=== PATIENT | male | born 1985 | race Caucasian/White ===

== ENCOUNTER 2017-02-25 14:53 | Emergency (ER) | payer OTHER, MEDICAID ==
[2017-02-25 16:16] VITALS: BP 126/80
--- NOTE | 2017-02-25 17:34 | UC ---
Throat Pain/Nasal Tang HPI - HPI Summary HPI Summary: TWO WEEKS OF COUGH FATIGHT SINUS PRESSURE, CONGESTION AND SORE THROAT - History of Current Complaint Chief Complaint: UCRespiratory Stated Complaint: COUGH,ST Time Seen by Provider: 02/25/17 16:24 Hx Obtained From: Patient Onset/Duration: Gradual Onset, Lasting Weeks, Still Present Severity: Moderate Pain Intensity: 7 Pain Scale Used: 0-10 Numeric Cough: Nonproductive Associated Signs & Symptoms: Positive: Hoarseness, Sinus Discomfort, Nasal Discharge - Epiglottits Risk Factors Epiglottis Risk Factors: Negative - Allergies/Home Medications Allergies/Adverse Reactions: Allergies Allergy/AdvReac Type Severity Reaction Status Date / Time No Known Allergies Allergy Verified 02/25/17 16:18 Home Medications: Home Medications Lurasidone HCl [Latuda] 1 cap PO DAILY 02/25/17 [History Confirmed 02/25/17] PMH/Surg Hx/FS Hx/Imm Hx Previously Healthy: Yes - Surgical History Surgical History: Yes Surgery Procedure, Year, and Place: FRONT TOOTH EXTRACTION - Family History Known Family History: Positive: Unknown - Social History Occupation: Disabled Lives: With Family Alcohol Use: Rare Substance Use Type: None Smoking Status (MU): Light Every Day Tobacco Smoker Type: Cigarettes Have You Smoked in the Last Year: No When Did the Patient Quit Smoking/Using Tobacco: 5-6 months ago Cessation Counseling: Patient Advised to Stop - Immunization History Most Recent Influenza Vaccination: fall 2014 Most Recent Tetanus Shot: unable to recall Most Recent Pneumonia Vaccination: NA Review of Systems Constitutional: Fatigue Skin: Negative Eyes: Negative ENT: Sore Throat, Ear Ache, Nasal Discharge, Sinus Congestion, Sinus Pain/ Tenderness Respiratory: Cough Cardiovascular: Negative Gastrointestinal: Negative Genitourinary: Negative Motor: Negative Neurovascular: Negative Musculoskeletal: Negative Neurological: Negative Psychological: Negative Is Patient Immunocompromised?: No All Other Systems Reviewed And Are Negative: Yes Physical Exam Triage Information Reviewed: Yes Appearance: No Pain Distress, Well-Nourished, Ill-Appearing Vital Signs: Initial Vital Signs Temp 97.9 F 02/25/17 16:13 Pulse 82 02/25/17 16:13 Resp 18 02/25/17 16:13 BP 126/80 02/25/17 16:13 Pulse Ox 99 02/25/17 16:13 Vital Signs Reviewed: Yes Eye Exam: Normal ENT: Positive: Nasal congestion, TM bulging, TM dull Dental Exam: Normal Neck exam: Normal Neck: Positive: Supple, Nontender, No Lymphadenopathy Respiratory Exam: Other - COUGH Respiratory: Positive: Chest non-tender, Lungs clear, Normal breath sounds, No respiratory distress, No accessory muscle use Cardiovascular Exam: Normal Cardiovascular: Positive: RRR, No Murmur, Pulses Normal Abdominal Exam: Normal Musculoskeletal Exam: Normal Neurological Exam: Normal Psychological Exam: Normal Psychological: Positive: Normal Response To Family Skin Exam: Normal Throat Pain/Nasal Course/Dx - Differential Dx/Diagnosis Differential Diagnosis/HQI/PQRI: Pharyngitis, Sinusitis, Tonsillitis, URI Provider Diagnoses: SINUSITIS Discharge - Discharge Plan Condition: Stable Disposition: HOME Prescriptions: Amoxicillin/Clavulanate TAB* [Augmentin TAB 875*] 875 mg PO BID #20 tab Benzonatate CAP* [Tessalon 100 MG CAP*] 100 mg PO TID PRN #15 cap PRN Reason: Cough Patient Education Materials: Sinusitis (ED), Acute Bronchitis (ED) Referrals: Oumar Apodaca MD [Primary Care Provider] -
== END 2017-02-25 16:44 | disposition home or self-care (01) ==
LOC: UCEAST 14:53
DX: J32.9 Chronic sinusitis, unspecified (principal); F17.210 Nicotine dependence, cigarettes, uncomplicated
CPT/HCPCS: 99212; G0463

== ENCOUNTER 2017-03-26 13:20 | Emergency (ER) | payer MEDICAID, OTHER ==
[2017-03-26 14:03] VITALS: BP 112/74
--- NOTE | 2017-03-26 14:18 | UC ---
Respiratory Complaint HPI - HPI Summary HPI Summary: 31 yo male with nasal congestion /post nasal drip and facial pressure x 1 week no f/c no cp or sob - History of Current Complaint Chief Complaint: UCRespiratory Stated Complaint: SINUS COMPLAINT Time Seen by Provider: 03/26/17 14:05 Hx Obtained From: Patient Onset/Duration: Gradual Onset, Lasting Days - 7 Timing: Constant Severity Initially: Mild Severity Currently: Moderate Pain Intensity: 4 Pain Scale Used: 0-10 Numeric Character: Cough: Nonproductive Associated Signs And Symptoms: Positive: Nasal Congestion, Hoarseness, Sinus Discomfort - Allergies/Home Medications Allergies/Adverse Reactions: Allergies Allergy/AdvReac Type Severity Reaction Status Date / Time No Known Allergies Allergy Verified 02/25/17 16:18 PMH/Surg Hx/FS Hx/Imm Hx Previously Healthy: Yes - Surgical History Surgical History: Yes Surgery Procedure, Year, and Place: FRONT TOOTH EXTRACTION - Family History Known Family History: Positive: Hypertension - Social History Alcohol Use: Occasionally Substance Use Type: None Smoking Status (MU): Light Every Day Tobacco Smoker Type: Cigarettes Have You Smoked in the Last Year: No When Did the Patient Quit Smoking/Using Tobacco: 5-6 months ago - Immunization History Most Recent Influenza Vaccination: fall 2014 Most Recent Tetanus Shot: unable to recall Most Recent Pneumonia Vaccination: NA Review of Systems Constitutional: Negative Skin: Negative Eyes: Negative ENT: Ear Ache, Nasal Discharge, Sinus Congestion, Sinus Pain/Tenderness Respiratory: Cough Cardiovascular: Negative Gastrointestinal: Negative Genitourinary: Negative Motor: Negative Neurovascular: Negative Musculoskeletal: Negative Neurological: Negative Psychological: Negative Is Patient Immunocompromised?: No All Other Systems Reviewed And Are Negative: Yes Physical Exam Triage Information Reviewed: Yes Appearance: Well-Appearing, No Pain Distress, Well-Nourished Vital Signs: Initial Vital Signs Temp 98.3 F 03/26/17 14:00 Pulse 89 03/26/17 14:00 Resp 18 03/26/17 14:00 BP 112/74 03/26/17 14:00 Pulse Ox 99 03/26/17 14:00 Vital Signs Reviewed: Yes Eyes: Positive: Conjunctiva Clear ENT: Positive: Hearing grossly normal, Nasal congestion, Nasal drainage, Other: - r>l max sinsus tenderness. Negative: Tonsillar swelling, Tonsillar exudate, Trismus, Muffled/hoarse voice Neck: Positive: Supple, Nontender, No Lymphadenopathy Respiratory: Positive: Lungs clear, Normal breath sounds, No respiratory distress Cardiovascular: Positive: RRR, No Murmur Abdominal Exam: Normal Bowel Sounds: Positive: Present Musculoskeletal: Positive: No Edema Neurological Exam: Normal Neurological: Positive: Alert Psychological Exam: Normal Skin Exam: Normal UC Diagnostic Evaluation - Laboratory O2 Sat by Pulse Oximetry: 99 - normal/not hypoxic Respiratory Course/Dx - Differential Dx/Diagnosis Provider Diagnoses: sinusitis Discharge - Discharge Plan Condition: Stable Disposition: HOME Prescriptions: Amoxicillin PO (*) [Amoxicillin 875 MG (*)] 875 mg PO BID #20 tab Patient Education Materials: Sinusitis (ED) Referrals: George Campos MD [Primary Care Provider] - 4 Days (recheck in 4-7 days if not better) Additional Instructions: warm facial compress saline nasal spray or netti pot
== END 2017-03-26 14:17 | disposition home or self-care (01) ==
LOC: UCEAST 13:20
DX: J32.9 Chronic sinusitis, unspecified (principal); F17.210 Nicotine dependence, cigarettes, uncomplicated
CPT/HCPCS: 99212; G0463

== ENCOUNTER 2018-03-21 10:38 | Emergency (ER) | payer MEDICARE, MEDICAID ==
--- OUTSIDE RECORDS SUMMARY | 2018-03-21 11:17 | XMS REPORT ---
:1985 External Reference #:[id number] Author Organization [facility] Address [address] [place] [address] Phone [phone] Care Team Providers Name Role Phone George Campos III, MD Primary Care Physician Unavailable Payers Type Date Identification Numbers Payment Provider Subscriber Medicare Primary Policy Number: Medicare Stephanie Wallace [id number] PayID: [id number] [address] [place] [address] [facility] Policy Number: [id number] Medicaid Stephanie Wallace Group Name: 1 1 [address] PayID: [id number] [place] [address] Commercial Effective: 2016 Policy Number: Mathew Wallace [id number] Expires: 2018 Group Name: [id number] [address] PayID: [id number] [place] [address] Commercial Effective: Policy Number: [employer] Stephanie E 2012 [id number] Medicaid [place] Expires: 2016 PayID: [id number] [address] [address] [place] [address] Problems Date Description Provider Status Onset: 07/30/2012 Mixed bipolar affective disorder, Oumar Apodaca M.D. Active mild Onset: 07/30/2012 Obesity Oumar Apodaca M.D. 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 Resolved Resolved: 08/01/2016 Social History Type Date Description Comments Occupation Unemployed Cigarette Use Patient is a current cigarette 1ppd; beagn age 16. Max 1ppd smoker, smokes every day ETOH Use Denies alcohol use (+) past abuse; in AA Smoking Patient is a former smoker Quit 07/2015 Allergies, Adverse Reactions, Alerts Date Description Reaction Status Severity Comments 02/08/2011 NKDA active Medications Medication Date Status Form Strength Qnty SIG Indications Ordering Provider Adderall / Active Tablets 20mg 1 in am Unknown 0000 Propecia 11/17/ Hx Tablets 1mg 30tabs 1 po daily L64.9 George Mendoza 2016 - Beth, 03/13/ M.D. 2018 Azithromycin 08/01/ Hx Tablets 250mg 6tabs 2 tabs by J06.9 Bruce 2016 - mouth on Vincentian, 08/06/ day 1; 1 EMERSON 2017 tab by mouth every day on days 2-5 Lamisil 03/16/ Hx Tablets 250mg 30tabs 1 by mouth B35.1 George Mendoza 2015 - daily Beth, 08/01/ M.D. 2016 No Active 10/17/ Hx Unknown Medications 2015 - 2015 Amoxicillin 10/17/ Hx Capsules 500mg 30caps 1 three J06.9 George eMndoza 2016 - times a Beth, 02/01/ day for 10 M.D. 2015 days Nicorette 07/30/ Hx Gum 4mg 120uni upto 4 305.1 Oumar 2012 - ts times Vazquezra 10/17/ daily prn , M.DYanira 2015 Lamictal / Hx Tablets 25mg 60tabs 1 tab bid Oumar 0000 - Paulie 07/30/ , Atul 2012 Wellbutrin XL / Hx Tablets ER 150mg not taking Unknown 0000 - 24HR 2015 Trazodone HCL / Hx Tablets 50mg 1 tablet Unknown 0000 - at bedtime 03/16/ as needed 2015 Abilify 00/ Hx Tablets 5mg not taking Unknown 0000 - 2015 Invega / Hx Suspension 117mg/ml nolonger Unknown Sustenna 0000 - taking q 2016 Strattera 0000/ Hx Capsules 40mg 1 by mouth Unknown 0000 - every day 2015 Concerta 00/ Hx Tablets ER 36mg 1 by mouth Unknown 0000 - every day 2017 Latuda 0000/ Hx Tablets 60mg 1 by mouth Unknown 0000 - every day 2017 Immunizations CPT Code Status Date Vaccine Lot # [id number] Given 02/19/2018 Influenza Virus Vaccine, Quadrivalent, Split, Preservative Free [id number] Given 06/11/2011 Tetanus And Diptheria (Td) For Adult Use Preservative Free Vital Signs Date Vital Result Comment 03/14/2018 Height 68 inches 5'8" Weight 213.00 lb Heart Rate 75 /min BP Systolic Sitting 132 mmHg BP Diastolic Sitting 84 mmHg Body Temperature 98.2 F O2 % BldC Oximetry 97 % BMI (Body Mass Index) 32.4 kg/m2 11/17/2016 Weight 211.38 lb Heart Rate 67 /min BP Systolic 118 mmHg BP Diastolic 80 mmHg Body Temperature 96.7 F O2 % BldC Oximetry 97 % 08/01/2016 Weight 204.00 lb Heart Rate 88 /min BP Systolic Sitting 128 mmHg BP Diastolic Sitting 70 mmHg Body Temperature 97.4 F O2 % BldC Oximetry 97 % 03/16/2016 Weight 184.00 lb Heart Rate 86 /min BP Systolic Sitting 112 mmHg BP Diastolic Sitting 70 mmHg Body Temperature 97.7 F O2 % BldC Oximetry 97 % 02/02/2016 Weight 171.00 lb with shoes Heart Rate 70 /min BP Systolic Sitting 120 mmHg BP Diastolic Sitting 76 mmHg O2 % BldC Oximetry 98 % 10/18/2015 Height 68 inches 5'8" Weight 183.00 lb Heart Rate 74 /min BP Systolic Sitting 138 mmHg BP Diastolic Sitting 78 mmHg Body Temperature 97.6 F BMI (Body Mass Index) 27.8 kg/m2 07/30/2012 Height 68 inches 5'8" Weight 202.00 lb Heart Rate 76 /min BP Systolic Sitting 122 mmHg BP Diastolic Sitting 80 mmHg BMI (Body Mass Index) 30.7 kg/m2 02/08/2011 Height 68 inches 5'8" Weight 159.00 lb Heart Rate 74 /min BP Systolic Sitting 118 mmHg BP Diastolic Sitting 70 mmHg BMI (Body Mass Index) 24.2 kg/m2 Results Test Date Test Result H/L Range Note Laboratory test finding 01/10/2017 PSA Screening 0.637 ng/mL 0-4.000 1 Lipid Profile (Trig/Chol/HDL) 01/10/2017 Triglycerides 362 mg/dL 2 Cholesterol 167 mg/dL 3 HDL Cholesterol 26.9 mg/dL 4 LDL Cholesterol 68 mg/dL 5 Basic Metabolic Panel 01/10/2017 Sodium 137 mmol/L 133-145 Potassium 3.9 mmol/L 3.5-5.0 Chloride 106 mmol/L 101-111 Co2 Carbon Dioxide 24 mmol/L 22-32 Anion Gap 7 mmol/L 2-11 Glucose 89 mg/dL 70-100 Blood Urea Nitrogen 7 mg/dL 6-24 Creatinine 0.88 mg/dL 0.67-1.17 BUN/Creatinine Ratio 8.0 8-20 Calcium 9.5 mg/dL 8.6-10.3 Egfr Non- 99.7 >60 Egfr 128.3 >60 6 Liver Function Panel 04/13/2016 Total Protein 7.2 g/dL 6.4-8.9 Albumin 4.7 g/dL 3.2-5.2 Globulin 2.5 g/dL 2-4 Albumin/Globulin Ratio 1.9 1-3 Total Bilirubin 0.60 mg/dL 0.2-1.0 Direct Bilirubin 0.10 mg/dL 0.03-0.18 Indirect Bilirubin 0.5 mg/dL 0.3-1.0 Alkaline Phosphatase 64 U/L 34-104 Alt 10 U/L 7-52 Ast 15 U/L 13-39 CBC Auto Diff 11/17/2015 White Blood Count 9.4 10^3/uL 3.5-10.8 Red Blood Count 5.70 10^6/uL High 4.0-5.4 Hemoglobin 17.0 g/dL 14.0-18.0 Hematocrit 49 % 42-52 Mean Corpuscular Volume 86 fL 80-94 Mean Corpuscular Hemoglobin 30 pg 27-31 Mean Corpuscular HGB Conc 35 g/dL 31-36 Red Cell Distribution Width 13 % 10.5-15 Platelet Count 289 10^3/uL 150-450 Mean Platelet Volume 7 um3 Low 7.4-10.4 Abs Neutrophils 6.6 10^3/uL 1.5-7.7 Abs Lymphocytes 2.0 10^3/uL 1.0-4.8 Abs Monocytes 0.7 10^3/uL 0-0.8 Abs Eosinophils 0 10^3/uL 0-0.6 Abs Basophils 0 10^3/uL 0-0.2 Abs Nucleated RBC 0.01 10^3/uL Granulocyte % 70.1 % 38-83 Lymphocyte % 21.4 % Low 25-47 Monocyte % 7.8 % 1-9 Eosinophil % 0.5 % 0-6 Basophil % 0.2 % 0-2 Nucleated Red Blood Cells % 0.1 Urine Drug SCR 11/17/2015 Amphetamine Ur Screen Presumptive Posi <SEE None Detect 7 [facility] NOTE> Barbiturates Urine Screen None Detected None Detect Benzodiazepine Urine Screen Presumptive Posi <SEE NOTE> None Detect 8 Urine Cannabinoids Screen Presumptive Posi <SEE NOTE> None Detect 9 Urine Cocaine Screen None Detected None Detect Urine Opiates Screen None Detected None Detect Urine Phencyclidine Screen None Detected None Detect 10 Basic Metabolic Panel 11/17/2015 Sodium 137 mmol/L 133-145 Potassium 3.6 mmol/L 3.5-5.0 Chloride 102 mmol/L 101-111 Co2 Carbon Dioxide 24 mmol/L 22-32 Anion Gap 11 mmol/L 2-11 Glucose 94 mg/dL 70-100 Blood Urea Nitrogen 11 mg/dL 6-24 Creatinine 1.04 mg/dL 0.67-1.17 BUN/Creatinine Ratio 10.6 8-20 Calcium 10.4 mg/dL High 8.6-10.3 Egfr Non- 82.8 >60 Egfr 106.4 >60 11 Laboratory test finding 11/17/2015 Acetaminophen < 15 g/mL 12 Alcohol < 10 mg/dL <10 Salicylate < 2.50 mg/dL <30 Urine Drug SCR ED & 11/12/2015 Amphetamine Ur Screen None Detected None Detect Pain Clinic Barbiturates Urine Screen None Detected None Detect Benzodiazepine Urine Screen Presumptive Posi <SEE NOTE> None Detect 13 Urine Cannabinoids Screen Presumptive Posi <SEE NOTE> None Detect 14 Urine Cocaine Screen None Detected None Detect Urine Opiates Screen None Detected None Detect Urine Phencyclidine Screen None Detected None Detect 15 Laboratory test finding 11/12/2015 Acetaminophen < 15 g/mL 16 Alcohol < 10 mg/dL <10 Salicylate < 2.50 mg/dL <30 TSH (Thyroid Stim Horm) 0.75 ?IU/mL 0.34-5.60 Comp Metabolic Panel 11/12/2015 Sodium 138 mmol/L 133-145 Potassium 3.9 mmol/L 3.5-5.0 Chloride 107 mmol/L 101-111 Co2 Carbon Dioxide 23 mmol/L 22-32 Anion Gap 8 mmol/L 2-11 Glucose 108 mg/dL High 70-100 Blood Urea Nitrogen 9 mg/dL 6-24 Creatinine 0.81 mg/dL 0.67-1.17 BUN/Creatinine Ratio 11.1 8-20 Calcium 9.7 mg/dL 8.6-10.3 Total Protein 7.5 g/dL 6.4-8.9 Albumin 4.9 g/dL 3.2-5.2 Globulin 2.6 g/dL 2-4 Albumin/Globulin Ratio 1.9 1-3 Total Bilirubin 0.60 mg/dL 0.2-1.0 Alkaline Phosphatase 56 U/L 34-104 Alt 11 U/L 7-52 Ast 16 U/L 13-39 Egfr Non- 110.4 >60 Egfr 142.0 >60 17 Urinalysis Profile 11/12/2015 Urine Color Yellow Urine Appearance Clear Urine Specific [place] 1.023 1.010-1.030 Urine pH 7.0 5-9 Urine Urobilinogen Positive Negative Urine Ketones Negative Negative Urine Protein Negative Negative Urine Leukocytes Negative Negative Urine Blood Negative Negative * * Negative 18 Urine Nitrite Negative Negative Urine Bilirubin Negative Negative Urine Glucose Negative Negative CBC Auto Diff 11/12/2015 White Blood Count 6.9 10^3/uL 3.5-10.8 Red Blood Count 5.02 10^6/uL 4.0-5.4 Hemoglobin 15.0 g/dL 14.0-18.0 Hematocrit 44 % 42-52 Mean Corpuscular Volume 88 fL 80-94 Mean Corpuscular Hemoglobin 30 pg 27-31 Mean Corpuscular HGB Conc 34 g/dL 31-36 Red Cell Distribution Width 13 % 10.5-15 Platelet Count 280 10^3/uL 150-450 Mean Platelet Volume 8 um3 7.4-10.4 Abs Neutrophils 4.0 10^3/uL 1.5-7.7 Abs Lymphocytes 2.3 10^3/uL 1.0-4.8 Abs Monocytes 0.5 10^3/uL 0-0.8 Abs Eosinophils 0.1 10^3/uL 0-0.6 Abs Basophils 0 10^3/uL 0-0.2 Abs Nucleated RBC 0.01 10^3/uL Granulocyte % 57.2 % 38-83 Lymphocyte % 33.2 % 25-47 Monocyte % 7.1 % 1-9 Eosinophil % 2.1 % 0-6 Basophil % 0.4 % 0-2 Nucleated Red Blood Cells % 0.1 Throat-Beta Strept 02/27/2013 Throat Beta Strep Culture (SEE NOTE) 19 1 PT IS FASTING 2 Desirable <150 Borderline high 150-199 High 200-499 Very High >500 3 Desirable <200 Borderline high 200-239 High >239 4 Low <40 Desirable: 40-60 High: >60 5 Desirable: <100 mg/dL Near Optimal: 100-129 mg/dL Borderline High: 130-159 mg/dL High: 160-189 mg/dL Very High: >189 mg/dL 6 Because ethnic data is not always readily available, this report includes an eGFR for both -Americans and non- Americans. The National Kidney Disease Education Program (NKDEP) does not endorse the use of the MDRD equation for patients that are not between the ages of 18 and 70, are , have extremes of body size, muscle mass, or nutritional status, or are non- or non-. According to the National Kidney Foundation, irrespective of diagnosis, the stage of the disease is based on the level of kidney function: Stage Description GFR(mL/min/1.73 m(2)) 1 Kidney damage with normal or decreased GFR 90 2 Kidney damage with mild decrease in GFR 60-89 3 Moderate decrease in GFR 30-59 4 Severe decrease in GFR 15-29 5 Kidney failure <15 (or dialysis) 7 Presumptive Positive Presumptive positive results are unconfirmed. 8 Presumptive Positive Presumptive positive results are unconfirmed. 9 Presumptive Positive Presumptive positive results are unconfirmed. 10 The urine specimen was tested at the listed cutoffs: Drug class test level (ng/mL) Amphetamines 500 Barbiturates 200 Benzodiazepine metabolites 200 Cocaine metabolites 150 Cannabinoids 50 Opiates 300 Pcp 25 Specimen was received without chain of custody. Results should be used for medical purposes only. 11 Because ethnic data is not always readily available, this report includes an eGFR for both -Americans and non- Americans. The National Kidney Disease Education Program (NKDEP) does not endorse the use of the MDRD equation for patients that are not between the ages of 18 and 70, are , have extremes of body size, muscle mass, or nutritional status, or are non- or non-. According to the National Kidney Foundation, irrespective of diagnosis, the stage of the disease is based on the level of kidney function: Stage Description GFR(mL/min/1.73 m(2)) 1 Kidney damage with normal or decreased GFR 90 2 Kidney damage with mild decrease in GFR 60-89 3 Moderate decrease in GFR 30-59 4 Severe decrease in GFR 15-29 5 Kidney failure <15 (or dialysis) 12 Therapeutic concentration: <50 ug/mL Toxic concentration: >120 ug/mL 13 Presumptive Positive Presumptive positive results are unconfirmed. 14 Presumptive Positive Presumptive positive results are unconfirmed. 15 The urine specimen was tested at the listed cutoffs: Drug class test level (ng/mL) Amphetamines 500 Barbiturates 200 Benzodiazepine metabolites 200 Cocaine metabolites 150 Cannabinoids 50 Opiates 300 Pcp 25 Specimen was received without chain of custody. Results should be used for medical purposes only. 16 Therapeutic concentration: <50 ug/mL Toxic concentration: >120 ug/mL 17 Because ethnic data is not always readily available, this report includes an eGFR for both -Americans and non- Americans. The National Kidney Disease Education Program (NKDEP) does not endorse the use of the MDRD equation for patients that are not between the ages of 18 and 70, are , have extremes of body size, muscle mass, or nutritional status, or are non- or non-. According to the National Kidney Foundation, irrespective of diagnosis, the stage of the disease is based on the level of kidney function: Stage Description GFR(mL/min/1.73 m(2)) 1 Kidney damage with normal or decreased GFR 90 2 Kidney damage with mild decrease in GFR 60-89 3 Moderate decrease in GFR 30-59 4 Severe decrease in GFR 15-29 5 Kidney failure <15 (or dialysis) 18 *Ascorbic acid is present which may interfere with detection of blood. 19 RUN DATE: 03/03/13 [facility] LAB LIVE PAGE 1 RUN TIME: [address] [place] [id number] Specimen Inquiry Name: STEPHANIE FIELDS : [address]: Lonnie Garcia MD Acct: [id number] Unit: [id number] AGE: 27 Location: [facility] Re02/27/13 SEX: M Status: DEP ER SPEC: [id number] DARIEL: 02/27/13-[address] [facility] [address]: Lonnie Garcia MD REQ: [id number] RECD: 02/28/13-1025 STATUS: DEVORA HELMS DR: Oumar Farley MD _ SOURCE: THROAT SPDESC: ORDERED: Throat Beta Str Procedure Result Verified Site Throat Beta Strep Culture Final 03/03/13- 0811 ML Organism 1 Negative Group A Strep END OF REPORT * ML=Testing performed at Main Lab DEPARTMENT OF PATHOLOGY, [address] [place] [address] Vinh Workman M.D. Director [facility] Permit #[id number] Procedures Date CPT Code Description Status 12/08/2015 46716 EKG, Interpretation Only Completed Encounters Type Date Location Provider CPT E/M Dx Office Visit 11/17/2016 9:20a [facility] George Campos, [address]60 L64.9 - Deon Pollard Z13.220 Z13.1 Office Visit 08/01/2016 1:40p [facility] [place] [address] J06.9 - [address] Office Visit 03/16/2016 10:20a [facility] George Campos, 83196 B35.1 - Deon Pollard Office Visit 02/02/2016 1:00p [facility] George Campos, 39727 M54.2 - Deon Pollard F20.9 Office Visit 12/03/2015 9:45a [facility] [address] L30.9 Hospitalists B35.1 Office Visit 11/30/2015 12:32p [facility] Jolie Montes, 99385 L30.9 Assoc,pc [employer] [facility] Office Visit 10/18/2015 3:00p [facility] George Campos M.D. 28528 J06.9 Trixie Robles B35.1 Office Visit 07/30/2012 8:00a [facility] Oumar Apodaca, 28174 296.61 Trixie Robles M.D. 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
[2018-03-21 11:18] VITALS: BP 137/84
[2018-03-21] MEDS ORDERED: Albuterol 2.5 MG/3 ML NEB.SOL* (0.083%) INH ONE (11:31)
--- NOTE | 2018-03-21 11:37 | ED ---
Respiratory - HPI Summary HPI Summary: patient with cough, producitive of brownish sputum, cough associated with some shortness of breath, brownish discharge from nose, normal sense of taste and smell. smoking 3/4 ppd - History of Current Complaint Chief Complaint: UCRespiratory Stated Complaint: COUGH,CONGESTED Time Seen by Provider: 03/21/18 11:24 Hx Obtained From: Patient Onset/Duration: Gradual Onset, Lasting Days Initial Severity: Moderate Current Severity: Moderate Pain Intensity: 7 Character: Wheezing Sputum Amount: Moderate Sputum Color: Brown Aggravating Factor(s): Nothing Alleviating Factor(s): Nothing Associated Signs and Symptoms: SOB, Sinus Infection, Wheezing - Risk Factors Status Asthmaticus Risk Factors: Negative Pulmonary Embolism Risk Factors: Negative Cardiac Risk Factors: Negative Pseudomonas Risk Factors: Negative Tuberculosis Risk Factors: Negative - Allergy/Home Medications Allergies/Adverse Reactions: Allergies Allergy/AdvReac Type Severity Reaction Status Date / Time No Known Allergies Allergy Verified 03/21/18 11:18 Home Medications: Home Medications Dextroamp-Amphetamin 20 mg Tab 20 mg PO DAILY 03/21/18 [History Confirmed ] PMH/Surg Hx/FS Hx/Imm Hx Previously Healthy: Yes Endocrine/Hematology History: Denies: Hx Diabetes, Hx Thyroid Disease Cardiovascular History: Denies: Hx Hypertension Respiratory History: Denies: Hx Asthma, Hx Chronic Obstructive Pulmonary Disease (COPD) GI History: Denies: Hx Ulcer Psychiatric History: Reports: Hx Depression, Hx Schizophrenia, Other Psychiatric Issues/Disorders - ADHD - Surgical History Surgery Procedure, Year, and Place: FRONT TOOTH EXTRACTION Infectious Disease History: No Infectious Disease History: Denies: Hx Hepatitis, Hx Human Immunodeficiency Virus (HIV), Traveled Outside the [place] in Last 30 Days - Family History Known Family History: Positive: Unknown, Hypertension - Social History Alcohol Use: Rare Hx Substance Use: No Substance Use Type: Reports: None Smoking Status (MU): Light Every Day Tobacco Smoker Type: Cigarettes Have You Smoked in the Last Year: No Review of Systems Positive: Fatigue Eyes: Negative Positive: Nasal Discharge Cardiovascular: Negative Positive: Shortness Of Breath, Cough Gastrointestinal: Negative Genitourinary: Negative Musculoskeletal: Negative Skin: Negative Neurological: Negative Psychological: Normal Physical Exam Triage Information Reviewed: Yes Vital Signs On Initial Exam: Initial Vitals Temp Pulse Resp BP Pulse Ox 36.6 C 75 16 137/84 100 03/21/18 11:15 03/21/18 11:15 03/21/18 11:15 03/21/18 11:15 03/21/18 11:15 Vital Signs Reviewed: Yes Appearance: Positive: Well-Appearing Skin: Positive: Warm, Dry Head/Face: Positive: Normal Head/Face Inspection Eyes: Positive: Normal ENT: Positive: Normal ENT inspection Neck: Positive: Supple Respiratory/Lung Sounds: Positive: Wheezes Cardiovascular: Positive: Normal Abdomen Description: Positive: Nontender Bowel Sounds: Positive: Present Musculoskeletal: Positive: Normal Diagnostics - Vital Signs Vital Signs Temp Pulse Resp BP Pulse Ox 03/21/18 11:15 36.6 C 75 16 137/84 100 - Laboratory Lab Statement: Any lab studies that have been ordered have been reviewed, and results considered in the medical decision making process. Disposition - Diagnoses Provider Diagnoses: Acute bronchitis, Sinusitis Discharge - Discharge Plan Condition: Fair Disposition: HOME Prescriptions: Albuterol HFA INHALER* [Ventolin HFA Inhaler*] 2 puff INH Q6H PRN #1 mdi PRN Reason: Cough Amoxicillin PO (*) [Amoxicillin 875 MG (*)] 875 mg PO BID #14 tab Patient Education Materials: Acute Bronchitis (ED), Sinusitis (ED) Referrals: George Campos MD [Primary Care Provider] - - Billing Disposition and Condition Condition: FAIR Disposition: Home
--- NOTE | 2018-03-21 11:57 | RAD ---
INDICATION: Cough, fever, chills, wheezing. Comparison: No relevant prior exams available on the [facility] PACS for comparison. Technique: Dual energy PA and lateral chest views. Report: Mildly elevated lung volumes. No focal pulmonary lesion, compelling alveolar consolidation, pleural effusion, pneumothorax. The heart, pulmonary vasculature, and mediastinal contours are unremarkable. Bilateral epicardial fat pads noted. IMPRESSION: #. Elevated lung volumes suggest potential obstructive lung disease. #. No evidence for pneumonia.
--- NOTE | 2018-03-21 21:39 | UC ---
- Progress Note Progress Note: Patient Name: STEPHANIE FIELDS Medical Record#: [id number] Ordering Physician: Rick Bellamy MD Acct.#: [id number] : 1985 Age: 32 Sex: M Location: [facility] Exam Date: 03/21/18 1130 ADM Status: REG ER Order Information: CHEST PA & LAT 2 VWS Accession Number: [id number] CPT: 71187 INDICATION: Cough, fever, chills, wheezing. Comparison: No relevant prior exams available on the [facility] PACS for comparison. Technique: Dual energy PA and lateral chest views. Report: Mildly elevated lung volumes. No focal pulmonary lesion, compelling alveolar consolidation, pleural effusion, pneumothorax. The heart, pulmonary vasculature , and mediastinal contours are unremarkable. Bilateral epicardial fat pads noted. IMPRESSION: #. Elevated lung volumes suggest potential obstructive lung disease. #. No evidence for pneumonia. <Electronically signed by George Ivey MD in OV> 03/21/18 115 Dictated By: George Ivey MD Dictated Date/Time: 03/21/18 1154 Transcribed Date/Time: 03/21/18 1152 Copy to: CC:Rick Bellamy MD; George Campos III, MD Imaging - [facility] Imaging - [facility] [address] [place] [address] ph [phone] ph ([phone]) ph ([phone]) This report is only to be considered final once signed by the Provider(s) as displayed in the "<Electronically Signed by >" field (s). Absence of a signature indicates the report is in a draft status and still needs to be finalized. In the event this document was created by someone other than the signing Provider, the individual initiating the document will be listed in the "Entered by:" or "Dictated by:" rivera. 1 of 1 Course/Dx - Diagnoses Provider Diagnoses: Acute bronchitis, Sinusitis Discharge - Sign-Out/Discharge Documenting (check all that apply): Post-Discharge Follow Up All imaging exams completed and their final reports reviewed: Yes - Discharge Plan Condition: Fair Disposition: HOME Prescriptions: Albuterol HFA INHALER* [Ventolin HFA Inhaler*] 2 puff INH Q6H PRN #1 mdi PRN Reason: Cough Amoxicillin PO (*) [Amoxicillin 875 MG (*)] 875 mg PO BID #14 tab Patient Education Materials: Sinusitis (ED), Acute Bronchitis (ED) Referrals: George Campos MD [Primary Care Provider] - - Billing Disposition and Condition Condition: FAIR Disposition: Home
--- NOTE | 2018-03-24 07:31 | UC ---
- Progress Note Progress Note: sputum culture shows normal daniela, no further actions. Course/Dx - Diagnoses Provider Diagnoses: Acute bronchitis, Sinusitis Discharge - Sign-Out/Discharge Documenting (check all that apply): Patient Departure All imaging exams completed and their final reports reviewed: Yes - Discharge Plan Condition: Fair Disposition: HOME Prescriptions: Albuterol HFA INHALER* [Ventolin HFA Inhaler*] 2 puff INH Q6H PRN #1 mdi PRN Reason: Cough Amoxicillin PO (*) [Amoxicillin 875 MG (*)] 875 mg PO BID #14 tab Patient Education Materials: Sinusitis (ED), Acute Bronchitis (ED) Referrals: George Campos MD [Primary Care Provider] - - Billing Disposition and Condition Condition: FAIR Disposition: Home
== END 2018-03-21 12:30 | disposition home or self-care (01) ==
LOC: UCEAST 10:38
DX: J20.9 Acute bronchitis, unspecified (principal); J32.9 Chronic sinusitis, unspecified; F90.9 Attention-deficit hyperactivity disorder, unspecified type; F17.210 Nicotine dependence, cigarettes, uncomplicated
CPT/HCPCS: 71046; 87070; 87205; 99212; G0463

== ENCOUNTER 2019-04-30 11:05 | Emergency (ER) | payer MEDICARE, MEDICAID ==
--- OUTSIDE RECORDS SUMMARY | 2019-04-30 11:11 | XMS REPORT | Continuity of Care Document ---
:1985 External Reference #:[id number] Author Name Gisela Valencia M.D., FACP Address [address] [place] [address] [place] [address] Care Team Providers Name Role Phone George Campos III, MD - Internal Care Team Information Nurse Orthopedic [phone] Medicine Problems Active Problems Provider Date Mixed bipolar affective disorder, mild Oumar Apodaca M.D. Onset: 2012 Obesity Oumar Apodaca M.D. Onset: 07/30/2012 Attention deficit hyperactivity disorder, Oumar Apodaca M.D. Onset: 07/30 predominantly inattentive type Ex-smoker Bruce Barnes NP Onset: 08/01/2016 Acute upper respiratory infection Bruce Barnes NP Onset: 08/01/2016 Social History Type Date Description Comments Sex Unknown Tobacco Use Start: Unknown Patient is a current 1ppd; beagn age 16. Max cigarette smoker, smokes 1ppd every day ETOH Use Denies alcohol use (+) past abuse; in AA Tobacco Use Start: Unknown Patient is a current smoker, smokes every day Smoking Status Reviewed: 04/28/19 Patient is a current smoker, smokes every day Allergies, Adverse Reactions, Alerts Description No Known Drug Allergies Medications Active Medications SIG Qnty Indications Ordering Provider Date Cephalexin 1 by mouth twice 14caps L03.115 Gisela Valencia, 2019 500mg daily Atul, FACP Capsules Gemfibrozil take one tablet 60tabs E78.1 Elayne Hanks MD 10/31/2018 600mg by mouth twice a Tablets day Lisinopril 1 by mouth every 90tabs I10 Elayne Hanks MD 10/31/2018 5mg Tablets day Clobetasol Propionate apply to affected 45gm L30.9 Elayne Hanks MD 2018 area twice a day 0.05% Cream Adderall 1 in am Unknown 20mg Tablets History Medications Cephalexin 1 by mouth twice 14caps Carmen Islas N.P. 2019 - 500mg daily 2019 Capsules Immunizations CPT Code Status Date Vaccine Lot # [id number] Given 03/05/2019 Fluzone High Dose 73845 Given 02/19/2018 Influenza Virus Vaccine, Quadrivalent, Split, Preservative Free [id number] Given 06/11/2011 Tetanus And Diptheria (Td) For Adult Use Preservative Free Vital Signs Date Vital Result Comment 2019 2:15pm Height 68 inches 5'8" Weight 200.00 lb Heart Rate 91 /min BP Systolic Sitting 130 mmHg Rue reg cuff BP Diastolic Sitting 94 mmHg Rue reg cuff O2 % BldC Oximetry 96 % BMI (Body Mass Index) 30.4 kg/m2 02/11/2019 9:33am Height 68 inches 5'8" Weight 198.00 lb Heart Rate 72 /min BP Systolic Sitting 122 mmHg BP Diastolic Sitting 79 mmHg Body Temperature 97.4 F O2 % BldC Oximetry 97 % BMI (Body Mass Index) 30.1 kg/m2 Results Test Acquired Date Facility Test Result H/L Range Note Lipid Profile 02/07/2019 [facility] Triglycerides 374 mg/dL 1 (Trig/Chol/HDL) [address] [place] [address] [phone] Cholesterol 166 mg/dL 2 HDL Cholesterol 29.3 mg/dL 3 LDL Cholesterol 62 mg/dL 4 Comp Metabolic 02/07/2019 [facility] Sodium 138 mmol/L Normal 135-145 Panel [address] [place] [address] [phone] Potassium 4.0 mmol/L Normal 3.5-5.0 Chloride 107 mmol/L Normal 101-111 Co2 Carbon Dioxide 23 mmol/L Normal 22-32 Anion Gap 8 mmol/L Normal 2-11 Glucose 97 mg/dL Normal 70-100 Blood Urea Nitrogen 10 mg/dL Normal 6-24 Creatinine 0.78 mg/dL Normal 0.67-1.17 BUN/Creatinine Ratio 12.8 Normal 8-20 Calcium 9.7 mg/dL Normal 8.6-10.3 Total Protein 7.0 g/dL Normal 6.4-8.9 Albumin 4.7 g/dL Normal 3.2-5.2 Globulin 2.3 g/dL Normal 2-4 Albumin/Globulin Ratio 2.0 Normal 1-3 Total Bilirubin 0.60 mg/dL Normal 0.2-1.0 Alkaline Phosphatase 62 U/L Normal 34-104 Alt 33 U/L Normal 7-52 Ast 24 U/L Normal 13-39 Egfr Non- 113.3 >60 Egfr 137.1 >60 5 1 Desirable: <150 Borderline High: 150-199 High: 200-499 Very High: >500 2 Desirable: <200 Borderline High: 200-239 High: >239 3 Low: <40 Desirable: 40-60 High: >60 4 Desirable: <100 Near Optimal: 100-129 Borderline High: 130-159 High: 160-189 Very High: >189 5 Because ethnic data is not always readily [...] 15-29 5 Kidney failure <15 (or dialysis) Procedures Description No Information Available Medical Devices Description No Information Available Encounters Type Date Location Provider Dx Diagnosis Office Visit 02/11/2019 [facility] Internal Elayne Hanks MD E78.1 Pure hyperglyceridemia 9:40a Medicine - [facility] I10 Essential (primary) hypertension F17.210 Nicotine dependence, cigarettes, uncomplicated Assessments Date Code Description Provider 2019 S80.861A Insect bite (nonvenomous), right lower Gisela Valencia M.D. , FACP leg, initial encounter 2019 L03.115 Cellulitis of right lower limb Gisela Valencia M.D., FACP 02/11/2019 E78.1 Pure hyperglyceridemia Elayne Hanks MD 02/11/2019 I10 Essential (primary) hypertension Elayne Hanks MD 02/11/2019 F17.210 Nicotine dependence, cigarettes, Elayne Hanks MD uncomplicated 10/31/2018 Z00.00 Encounter for general adult medical Elayne Hanks MD examination without abno 10/31/2018 F20.9 Schizophrenia, unspecified Elayne Hanks MD 10/31/2018 E78.1 Pure hyperglyceridemia Elayne Hanks MD 10/31/2018 I10 Essential (primary) hypertension Elayne Hanks MD 10/31/2018 F17.210 Nicotine dependence, cigarettes, Elayne Hanks MD uncomplicated 10/31/2018 L30.9 Dermatitis, unspecified Elayne Hanks MD Plan of Treatment Future Appointment(s):08/12/2019 9:40 am - [facility] Gisela Valencia M.D., FACPS80.861A Insect bite ( nonvenomous), right lower leg, initial encounterComments:INSECT BITES:I understand that you have been struggling to eradicate bedbugs from your home. I think that the bites on your right leg appear infectted and should be treated with an antibiotic. I havesent an rx for cephalexin to your pharmacy.You may use diphenhydramine for the itching (this is available OTC).I do not think that you should continue to take so much ibuprofen.I am giving you some information about bed bugs from the website UpOpsonaDate.L03.115 Cellulitis of right lower limbNew Medication:Cephalexin 500 mg - 1 by mouth twice daily Functional Status Description No Information Available Mental Status Description No Information Available Referrals Refer to Reason for Referral Status Appt Date [facility] Received Partial [address] [facility] [address] [place] [address] [phone] Lucio Garcia MD Sent 11/28/2018 [facility], [address] [place] [id number] [phone]
--- OUTSIDE RECORDS SUMMARY | 2019-04-30 11:11 | XMS REPORT | Continuity of Care Document ---
:1985 External Reference #:[id number] Author Name Gisela Valencia M.D., FACP (transmitted by agent of provider Sahra Sandhu) Address [address] [place] [address] [place] [address] Care Team Providers Name Role Phone George Campos III, MD - Internal Care Team Information Addiction Psychiatrist [phone] Medicine Problems Active Problems Provider Date Mixed [...] Date Cephalexin 1 by mouth twice 14caps Gisela Valencia, 2019 500mg daily Atul, FACP Capsules Gemfibrozil take one tablet 60tabs E78.1 Elayne Hanks MD 10/31/2018 600mg by mouth twice a Tablets day Lisinopril 1 by mouth every 90tabs I10 Elayne Hanks MD 10/31/2018 5mg Tablets day Clobetasol Propionate apply to affected 45gm L30.9 Elayne Hanks MD 2018 area twice a day 0.05% Cream Adderall 1 in am Unknown 20mg Tablets Immunizations CPT Code Status Date Vaccine Lot # [id number] Given 03/05/2019 Fluzone High Dose 58372 Given 02/19/2018 Influenza Virus Vaccine, Quadrivalent, Split, Preservative Free 01121 Given 06/11/2011 Tetanus And Diptheria (Td) For [...] Result H/L Range Note Lipid Profile 02/07/2019 [facility] Triglycerides 374 mg/dL 1 (Trig/Chol/HDL) [address] [place] [address] [phone] Cholesterol 166 mg/dL 2 HDL Cholesterol 29.3 mg/dL 3 LDL Cholesterol 62 mg/dL 4 Comp Metabolic 02/07/2019 [facility] Sodium 138 mmol/L Normal 135-145 Panel [address] [place] [address] [phone] Potassium 4.0 mmol/L Normal 3.5-5.0 Chloride 107 [...] Location Provider Dx Diagnosis Office Visit 02/11/2019 [employer] [facility] Elayne Hanks MD E78.1 Pure hyperglyceridemia 9:40a Medicine - [facility] I10 Essential (primary) hypertension F17.210 Nicotine dependence, cigarettes, uncomplicated Assessments Date Code Description Provider 2019 S80.862A Insect bite (nonvenomous), left lower Gisela Valencia M.D. , FACP leg, initial encounter 02/11/2019 E78.1 Pure hyperglyceridemia Elayne Hanks MD [...] 9:40 am - Elay[facility] Valencia M.D., FACPS80.862A Insect bite ( nonvenomous), left lower leg, initial encounterComments:INSECT BITES:I understand that you have been struggling to eradicate bedbugs from your home. I think that the bites on your left leg appear infectted and should be treated with an antibiotic. I have sent an rx for cephalexin to your pharmacy.You may use diphenhydramine for the itching (this is available OTC).I do not think that you should continue to take so much ibuprofen.I am giving you some information about bed bugs from the website UpToDate. Functional Status Description No Information Available Mental Status Description No Information Available Referrals Refer to Dr Reason for Referral Status Appt Date [facility] Received Partial [address] [facility] [address] [place], [place] [id number] [phone] Lucio Garcia MD Sent 11/28/2018 [address] [facility], [place] [address] [phone]
[2019-04-30 11:46] VITALS: BP 146/88
--- NOTE | 2019-04-30 12:14 | UC ---
Skin Complaint HPI - HPI Summary HPI Summary: 34-year-old male who was seen here on the for infected bedbug bites. He was started on cephalexin and has had 4 doses however he states he hasn't had no improvement. He has had some drainage out of one of them. No history of MRSA. - History of Current Complaint Chief Complaint: UCSkin Time Seen by Provider: 04/30/19 12:12 Stated Complaint: BUG BITES Hx Obtained From: Patient Onset/Duration: Gradual Onset Skin Exposure Onset/Duration: Days Ago Timing: Constant Onset Severity: Mild Current Severity: Moderate Pain Intensity: 6 Location: Other - Back of right leg in 3 different areas Character: Swelling, Pain, Redness, Raised Aggravating Factor(s): Touch Alleviating Factor(s): Nothing Associated Signs & Symptoms: Positive: Drainage, Tenderness Related History: Insect Bite/Sting - Patient states he has bedbugs in his house and is having a difficult time getting rid of them. - Allergy/Home Medications Allergies/Adverse Reactions: Allergies Allergy/AdvReac Type Severity Reaction Status Date / Time No Known Allergies Allergy Verified 04/30/19 11:38 Home Medications: Home Medications Dextroamphetamine/Amphetamine [Adderall 10 mg-] 1 tab PO BEDTIME 04/30/19 [ History Confirmed 04/30/19] Dextroamphetamine/Amphetamine [Adderall Xr 20 mg Capsule] 20 mg PO DAILY [History Confirmed 04/30/19] Ibuprofen TAB* [Motrin TAB* 600 MG] 600 mg PO Q6H PRN 04/30/19 [History Confirmed 04/30/19] PMH/Surg Hx/FS Hx/Imm Hx Previously Healthy: Yes Psychological History: Schizophrenia - Surgical History Surgical History: Yes Surgery Procedure, Year, and Place: FRONT TOOTH EXTRACTION - Family History Known Family History: Positive: Unknown, Hypertension - Social History Occupation: Employed Part-time Alcohol Use: Occasionally Substance Use Type: None Smoking Status (MU): Light Every Day Tobacco Smoker Type: Cigarettes Amount Used/How Often: under 1 PPD Have You Smoked in the Last Year: No When Did the Patient Quit Smoking/Using Tobacco: 5-6 months ago - Immunization History Most Recent Influenza Vaccination: fall 2014 Most Recent Tetanus Shot: unable to recall Most Recent Pneumonia Vaccination: NA Review of Systems All Other Systems Reviewed And Are Negative: Yes Skin: Positive: Other - 3 areas of infected bug bites behind his right lower leg , he has other bedbug bites on his arms and upper legs which are not infected. 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 Vital Signs: Initial Vital Signs Temp 98.2 F 04/30/19 11:40 Pulse 80 04/30/19 11:40 Resp 16 04/30/19 11:40 BP 146/88 04/30/19 11:40 Pulse Ox 98 04/30/19 11:40 Vital Signs Reviewed: Yes Musculoskeletal Exam: Normal Neurological Exam: Normal Psychological Exam: Normal Skin: Positive: Other - Patient has 2 abscesses on the right calf area, one that drains a small amount of pus and the other one is very hard on palpation. He has a third one proximal to that which is just erythema and a small amount of hardness on palpation. He has several other bedbug bites which are not infected on his arms and upper right leg. Procedures - Incision and Drainage Right Lower Posterior Midline Distal Leg Anesthesia: Local Instrument(s): Scalpel Packing: Other - no packing. Course/Dx - Course Course Of Treatment: The abscess on the patient's proximal calf had an area of visible pus under the skin and therefore after timeout was done area was nicked using the knife blade and pus was expressed. Then after injection of lidocaine 1% plain in that area and the distal abscess and approximately 0.5 cm incision was done and copious amounts of exudate were expressed. Patient tolerated procedure well. Sterile dressing was then applied to both areas. I'm changing his antibiotic to Bactrim to cover MRSA and he is to stop the cephalexin. He is to do warm moist compresses or warm water soaks 4-6 times a day for 20 minutes each time. He is to make an appointment with his primary care provider for follow-up for recheck. If he develops fever, chills and vomiting unable keep the medicine down his to go to the emergency room. - Diagnoses Provider Diagnosis: Abscess of leg, Insect bite, infected Discharge ED - Sign-Out/Discharge Documenting (check all that apply): Patient Departure All imaging exams completed and their final reports reviewed: No Studies - Discharge Plan Condition: Fair Disposition: HOME Prescriptions: oxyCODONE/Acetamin 5/325 MG* [Percocet 5/325 TAB*] 1 tab PO Q6H PRN #5 tab MDD 6 PRN Reason: Pain - Moderate Sulfamethox/Trimethoprim DS* [Bactrim DS 800/160 TAB*] 1 tab PO BID 10 Days #20 tab Patient Education Materials: Abscess (ED) Referrals: Elayne Hanks MD [Primary Care Provider] - Additional Instructions: Warm moist compresses 4-6 times a day for 20 minutes each time or do warm water soaks in your bathtub. Take the Bactrim with food. Definite follow-up with your primary care provider on Sunday for a recheck. If you develop fever, chills and vomiting and unable keep the medication down then you're to go to the emergency room for further treatment. Change Dressing daily. May continue Tylenol every 4 hours for pain or Motrin every 8 hours. If you take the Tylenol do not take the Percocet within 4 hours because it contains Tylenol. - Billing Disposition and Condition Condition: FAIR Disposition: Home - Attestation Statements Provider Attestation: Per institutional requirements, I have reviewed the chart, however, I was not consulted specifically or made aware of this patient by the midlevel provider. I did not personally evaluate, interact with , or disposition this patient.
[2019-04-30] MEDS ORDERED: Lidocaine 1% MPF ** 5 ML VIAL INJ ONE (12:41)
== END 2019-04-30 13:25 | disposition home or self-care (01) ==
LOC: UCEAST 11:05
DX: S80.861D Insect bite (nonvenomous), right lower leg, subsequent encounter (principal); L03.115 Cellulitis of right lower limb; F20.9 Schizophrenia, unspecified; F17.210 Nicotine dependence, cigarettes, uncomplicated; W57.XXXD Bitten or stung by nonvenomous insect and other nonvenomous arthropods, subsequent encounter
CPT/HCPCS: 10060; 99212; G0463

== ENCOUNTER 2019-09-29 11:16 | Emergency (ER) | payer MEDICARE, MEDICAID ==
--- OUTSIDE RECORDS SUMMARY | 2019-09-29 11:23 | XMS REPORT | Continuity of Care Document ---
:1985 External Reference #:[id number] Author Name Elayne Hanks MD (transmitted by agent of provider Sahra Sandhu) Address [address], [place] [address] Care Team Providers Name Role Phone George Campos III, MD - Internal Care Team Information [place] Medicine Problems Active Problems Provider Date Mixed [...] smoker, smokes every day Smoking Status Reviewed: 08/12/19 Patient is a current smoker, smokes every day Allergies, Adverse Reactions, Alerts Description No Known Drug Allergies Medications Active Medications SIG Qnty Indications Ordering Provider Date Omeprazole 1 by mouth every 90caps K21.9 Elayne Hanks MD 08/12/[address] Lester take one tablet 60tabs E78.1 Elayne Hanks MD 10/31/2018 600mg by mouth twice a Tablets day Lisinopril 1 by mouth every 90tabs I10 Elayne Hanks MD 10/31/2018 5mg Tablets day Adderall 1 in am Unknown 20mg Tablets History Medications Cephalexin 1 by mouth 14caps Carmen Islas, 2019 - 500mg twice daily N.P. 2019 Capsules Cephalexin 1 by mouth 14caps L03.115 Gisela Valencia, 2019 - 500mg twice daily M.DYanira, FACP 08/12/2019 Capsules Immunizations CPT Code Status Date Vaccine Lot # [id number] Given 03/05/2019 Fluzone High Dose 36184 Given 02/19/2018 Influenza Virus Vaccine, Quadrivalent, Split, Preservative Free 74168 Given 06/11/2011 Tetanus And Diptheria (Td) For Adult Use Preservative Free Vital Signs Date Vital Result Comment 08/12/2019 9:35am Height 68 inches 5'8" Weight 205.00 lb Heart Rate 66 /min BP Systolic Sitting 131 mmHg BP Diastolic Sitting 85 mmHg Body Temperature 97.6 F O2 % BldC Oximetry 96 % BMI (Body Mass Index) 31.2 kg/m2 2019 2:15pm Height 68 inches 5'8" Weight 200.00 lb Heart Rate 91 /min BP Systolic Sitting 130 mmHg Rue reg cuff BP Diastolic Sitting 94 mmHg Rue reg cuff O2 % BldC Oximetry 96 % BMI (Body Mass Index) 30.4 kg/m2 Results Description No Information Available Procedures Date Code Description Status 07/22/2019 09824 Destruction Of Benign Lesions Any Method 1-14 lesions Completed Medical Devices Description No Information Available Encounters Type Date Location Provider Dx Diagnosis Office Visit 07/22/2019 [facility] AT [facility] L30.8 Other specified 10:45a Len Schofield DO dermatitis D22.5 Melanocytic nevi of trunk L91.8 Other hypertrophic disorders of the skin B07.8 Other viral warts L29.8 Other pruritus L53.8 Other specified erythematous conditions Office Visit 2019 2:00p [facility] Internal Gisela Valencia, S80.861A Insect bite Medicine - MYaniraDYanira, FACP (nonvenomous), right Ccmob lower leg, init encntr L03.115 Cellulitis of right lower limb Assessments Date Code Description Provider 08/12/2019 I10 Essential (primary) hypertension Elayne Hanks MD 08/12/2019 E78.1 Pure hyperglyceridemia Elayne Hanks MD 08/12/2019 K21.9 Gastro-esophageal reflux disease without Elayne Hanks MD esophagitis 07/22/2019 L30.8 Other specified dermatitis Lucio Garcia MD 07/22/2019 L30.8 Other specified dermatitis Troy Schofield, DO 07/22/2019 D22.5 Melanocytic nevi of trunk Lucio Garcia MD 07/22/2019 D22.5 Melanocytic nevi of trunk Troy Schofield, DO 07/22/2019 L91.8 Other hypertrophic disorders of the skin Lucio Garcia MD 07/22/2019 L91.8 Other hypertrophic disorders of the skin Troy Schofield, DO 07/22/2019 B07.8 Other viral warts Lucio Garcia MD 07/22/2019 B07.8 Other viral warts Troy Schofield, DO 07/22/2019 L29.8 Other pruritus Troy Schofield, DO 07/22/2019 L53.8 Other specified erythematous conditions Troy Schofield , DO 2019 S80.861A Insect bite (nonvenomous), right lower Gisela Valencia M.D. , FACP leg, initial encounter 2019 L03.115 Cellulitis of right lower limb Gisela Valencia M.D., [facility] Plan of Treatment Future Appointment(s):09/09/2019 9:40 am - Elayne Hanks MD at [facility] Internal Medicine - [facility]08/12/2019 - Elayne Hanks MDI10 Essential (primary) hypertensionComments:Your blood pressure is okContinue to stay off the medication at this time Please do check BP atleastonce a week or every other weekE78.1 Pure hsdkmwdbljpqnbqebK13.9 Gastro-esophageal reflux disease without esophagitisNew Medication:Omeprazole 20 mg - 1 by mouth every dayComments:Take the medication for 4 weeksFollow up:F/U 4 weeks Functional Status Description No Information Available Mental Status Description No Information Available Referrals Description No Information Available
--- OUTSIDE RECORDS SUMMARY | 2019-09-29 11:23 | XMS REPORT ---
:1985 Author Organization [facility] Care Team Providers Name Role Phone ARMANDO GARY Primary Care Physician Unavailable Allergies, Adverse Reactions, Alerts Allergy Code CodeSystem Reaction Severity Criticality Status Start Substance Date Moderate Medications Medication Medication Medication Start Stop Route Dose Status Fill Code CodeSystem Date Date Instructions dextroamphet 543693 RxNorm 2018-10- oral 20 mg completed for 30 amine-amphet -22 06-21 capsule, day(s) amine extended release 24hr dextroamphet 934269 RxNorm 2018-09- oral 10 mg completed for 30 amine-amphet -26 05-22 tablet day(s) amine dextroamphet 196019 RxNorm 2018-07- oral 10 mg completed for 30 amine-amphet -20 04-26 tablet day(s) amine dextroamphet 517402 RxNorm 2018-07- oral 20 mg completed for 30 amine-amphet -20 04-26 capsule, day(s) amine extended release 24hr dextroamphet 488933 RxNorm 2018-09- oral 20 mg completed for 30 amine-amphet -26 05-22 capsule, day(s) amine extended release 24hr dextroamphet [id number] RxNorm 2018-10- oral 10 mg completed for 30 amine-amphet -22 06-21 tablet day(s) amine Problems Problem Name Code CodeSystem Alternate Alternate Start End Status Narrative Code CodeSystem Date Date 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-0 Active disorder, 4-02 unspecified Schizophrenia, 20275974 SNOMED-CT 0 Active unspecified 3-22 Schizophrenia, 45378057 SNOMED-CT 0 Active unspecified 3-22 Nicotine 95811562 SNOMED-CT 0 Active dependence, 4- unspecified, uncomplicated Cannabis use 75534745 SNOMED-CT Active disorder, 4-02 Moderate Disturbance of 79092172 SNOMED-CT 2018-0 Active activity and 4- attention Alcohol abuse, 23961737 SNOMED-CT 2018- Active uncomplicated 09-10 Relevant diagnostic tests/laboratory data Narrative No Information Procedures Procedure Code CodeSystem Target Date of Status Service Device Device Device Name Site Procedure Delivery Code Name UID Location SNOMED-CT () 2018-09-11 complete Mental d Health- [address], [id number] Psychotherap 727292 SNOMED-CT () 2018-09-26 complete Mental y, 45 04 d Health- minutes with [place] patient [address], [id number] [phone] Psychotherap [id number] SNOMED-CT () 2018-10-15 complete Mental y, 45 04 d Health- minutes with [place] patient [address], [phone] Office or [id number] SNOMED-CT () 2018-10-30 complete Mental other 6 d Health- outpatient [place] visit for [address], established [id number] patient, [phone] which requires at least 2 of these 3 pinon components: A problem focused history; A problem focused examination; Straightforw [place] medical decision making. Counselin SNOMED-CT () 2018-10-28 complete Mental d Health- [address], [phone] [phone] Psychotherap [id number] SNOMED-CT () 2018-11-13 complete Mental y, 45 04 d Health- minutes with [place] patient [address], [id number] [phone] SNOMED-CT () 2018-12-04 complete Mental d Health- [address], [id number] [phone] Psychotherap 895549 SNOMED-CT () 2019-01-30 complete Mental y, 45 04 d Health- minutes with [place] patient [address], [id number] [phone] Office or [id number] SNOMED-CT () 2019-01-29 complete Mental other 6 d Health- outpatient [place] visit for [address] [phone] patient, [phone] which requires at least 2 of these 3 pinon components: A problem focused history; A problem focused examination; Straightforw [place]ennox medical decision making. Counseldominick SNOMED-CT () 2019-03-07 complete Mental d Health- [place] [address], [id number] [phone] Office or [id number] SNOMED-CT () 2019-04-30 complete Mental other 6 d Health- outpatient [place] visit for [address] [id number] patient, [phone] which requires at least 2 of these 3 pinon components: A problem focused history; A problem focused examination; Straightforw lennox medical decision making. Counselin Psychotherap 556904 SNOMED-CT () 2019-06-06 complete Mental y, 45 04 d Health- minutes with [place] patient [address], [id number] [phone] Office or [id number] SNOMED-CT () 2019-07-21 complete Mental other 7 d Health- outpatient [place] visit for [address] [id number] patient, [phone] which requires at least 2 of these 3 pinon components: An expanded problem focused history; An expanded problem focused examination; Medical decision making of low Encounters/Encounter Diagnoses Encounter Encounter Diagnosis Diagnosis Name Diagnosis Date of Service Name Code Code CodeSystem Diagnosis Delivery Location [id number] Schizophrenia, SNOMED-CT [facility] , , , Vital Signs No Information Social History Element Description Description Start End Code CodeSystem AdditionalInfo Date Date SexAssignedAtBirth Male 1984- M AdministrativeGender 16 Hospital Discharge Instructions Reason For Referral Medical Equipment FDA Assessments
--- OUTSIDE RECORDS SUMMARY | 2019-09-29 11:23 | XMS REPORT | Continuity of Care Document ---
:1985 External Reference #:[id number] Author Name Elayne Hanks MD (transmitted by agent of provider Kristy Nuno) Address [address] [facility], [place] [address] Care Team Providers Name Role Phone George Campos III, MD - Internal Care Team Information [place] [phone] Medicine Problems Active Problems Provider Date Mixed [...] History Medications Cephalexin 1 by mouth 14caps aCrmen Islas, 2019 - 500mg twice daily N.P. 2019 Capsules Cephalexin 1 by mouth 14caps L03.115 Gisela Valencia, 2019 - 500mg twice daily M.DYanira, FACP 08/12/2019 Capsules Immunizations CPT Code Status Date Vaccine Lot # [id number] Given 03/05/2019 Fluzone High Dose 91468 Given 02/19/2018 Influenza Virus Vaccine, Quadrivalent, Split, Preservative Free 58004 Given 06/11/2011 Tetanus And Diptheria (Td) For [...] BMI (Body Mass Index) 30.4 kg/m2 Results Test Acquired Date Facility Test Result H/L Range Note Lipid Profile 08/12/2019 [facility] Triglycerides 208 mg/dL 1 (Trig/Chol/HDL) [address] [place] [address] [phone] Cholesterol 144 mg/dL 2 HDL Cholesterol 24.7 mg/dL 3 LDL Cholesterol 78 mg/dL 4 Comp Metabolic 08/12/2019 [facility] Sodium 137 mmol/L Normal 135-145 Panel [address] [place] [address] [phone] Potassium 4.0 mmol/L Normal 3.5-5.0 Chloride 107 mmol/L Normal 101-111 Co2 Carbon Dioxide 23 mmol/L Normal 22-32 Anion Gap 7 mmol/L Normal 2-11 Glucose 89 mg/dL Normal 70-100 Blood Urea Nitrogen 12 mg/dL Normal 6-24 Creatinine 0.80 mg/dL Normal 0.67-1.17 BUN/Creatinine Ratio 15.0 Normal 8-20 Calcium 9.8 mg/dL Normal 8.6-10.3 Total Protein 7.4 g/dL Normal 6.4-8.9 Albumin 4.8 g/dL Normal 3.2-5.2 Globulin 2.6 g/dL Normal 2-4 Albumin/Globulin Ratio 1.8 Normal 1-3 Total Bilirubin 0.60 mg/dL Normal 0.2-1.0 Alkaline Phosphatase 62 U/L Normal 34-104 Alt 31 U/L Normal 7-52 Ast 25 U/L Normal 13-39 Egfr Non- 109.4 >60 Egfr 132.4 >60 5 1 Desirable: <150 Borderline High: [...] 5 Kidney failure <15 (or dialysis) Procedures Date Code Description Status 07/22/2019 18732 Destruction Of Benign Lesions Any Method 1-14 lesions Completed Medical Devices Description No Information Available Encounters Type Date Location Provider Dx Diagnosis Office Visit 08/12/2019 [facility] Internal Elayne Hanks MD I10 Essential ( primary) 9:40a Medicine - Ccmob hypertension E78.1 Pure hyperglyceridemia K21.9 Gastro-esophageal reflux disease without esophagitis Office Visit 07/22/2019 10:45a [facility] Dermatology AT [facility] L30.8 Other specified [place] Bashline, DO dermatitis D22.5 Melanocytic nevi of trunk L91.8 Other hypertrophic disorders of the skin B07.8 Other viral warts L29.8 Other pruritus L53.8 Other specified erythematous conditions Office Visit 2019 2:00p [facility] Internal Giselanuria Valencia, S80.861A Insect bite Medicine - Atul, FACP (nonvenomous), right Ccmob lower leg, init encntr L03.115 Cellulitis of right lower limb Assessments Date Code Description Provider 08/12/2019 I10 Essential (primary) hypertension Elayne Hanks MD 08/12/2019 E78.1 Pure hyperglyceridemia Elayne Hakns MD 08/12/2019 K21.9 Gastro-esophageal reflux disease without [...] right lower limb Gisela Valencia M.D., FACP Plan of Treatment Future Appointment(s):09/09/2019 9:40 am - Elayne Hanks MD at [facility] Internal Medicine - C[facility]ob08/12/2019 - Elayne Hanks MDI10 Essential (primary) hypertensionComments:Your blood pressure is okContinue to stay off the medication at this time Please do check BP atleastonce a week or every other weekE78.1 Pure fabghdhhmskrfqdczG41.9 Gastro-esophageal reflux disease without esophagitisNew Medication:Omeprazole 20 mg - 1 by mouth every dayComments:Take the medication for 4 weeksFollow up:F/U 4 weeks Functional Status Description No Information Available Mental Status Description No Information Available Referrals Description No Information Available
[2019-09-29 11:43] VITALS: BP 138/79
[2019-09-29] MEDS ORDERED: cefTRIAXone VIAL(*) 1,000 MG VIAL IVPB ONE (12:06)
[2019-09-29] MEDS ORDERED: Sulfamethox/Trimethoprim DS 800/160* TAB PO ONE (12:12)
[2019-09-29] MEDS ORDERED: NS 0.9% 1000 ML** 1,000 ML IV ONE (12:21)
--- NOTE | 2019-09-29 12:22 | ED ---
Skin Complaint - HPI Summary HPI Summary: 34 yo WM smoker h/o MRSA skin infections p/w recurrent MRSA like skin lesions on right knee, right thigh associated with right inguinial LN swelling and tenderness x 1 week, pain worsening but denies f/c/n/v/d. - History of Current Complaint Chief Complaint: UCSkin Time Seen by Provider: 09/29/19 11:43 Stated Complaint: SKIN ISSUE Hx Obtained From: Patient Hx From Patient Unobtainable Due To: Other Skin Exposure Onset/Duration: Weeks Ago Timing: Lasting Days Onset Severity: Moderate Current Severity: Moderate Pain Intensity: 7 - Additional Pertinent History Primary Care Physician: DERECK - Allergy/Home Medications Allergies/Adverse Reactions: Allergies Allergy/AdvReac Type Severity Reaction Status Date / Time No Known Allergies Allergy Verified 09/29/19 11:32 Home Medications: Home Medications Dextroamphetamine/Amphetamine [Adderall 10 mg-] 1 tab PO BEDTIME 04/30/19 [ History Confirmed 09/29/19] Dextroamphetamine/Amphetamine [Adderall Xr 20 mg Capsule] 20 mg PO DAILY [History Confirmed 09/29/19] Ibuprofen TAB* [Motrin TAB* 600 MG] 600 mg PO Q6H PRN 04/30/19 [History Confirmed 09/29/19] Amoxicillin PO (*) [Amoxicillin 500 MG CAP*] 1,500 mg PO Q12H 09/29/19 [History Confirmed 09/29/19] Sulfamethox/Trimethoprim DS* [Bactrim DS 800/160 TAB*] 1 tab PO BID 10 Days #20 tab 09/29/19 [Rx] PMH/Surg Hx/FS Hx/Imm Hx Previously Healthy: Yes Endocrine/Hematology History: Denies: Hx Diabetes, Hx Thyroid Disease Cardiovascular History: Reports: Hx Hypertension Respiratory History: Denies: Hx Asthma, Hx Chronic Obstructive Pulmonary Disease (COPD) GI History: Denies: Hx Ulcer Psychiatric History: Reports: Hx Depression, Hx Schizophrenia, Other Psychiatric Issues/Disorders - ADHD - Surgical History Surgery Procedure, Year, and Place: FRONT TOOTH EXTRACTION Infectious Disease History: No Infectious Disease History: Denies: Hx Hepatitis, Hx Human Immunodeficiency Virus (HIV), Traveled Outside the [place] in Last 30 Days - Family History Known Family History: Positive: Unknown, Hypertension - Social History Alcohol Use: None Hx Substance Use: No Substance Use Type: Reports: None Smoking Status (MU): Heavy Every Day Tobacco Smoker Type: Cigarettes Amount Used/How Often: 1 PPD Have You Smoked in the Last Year: No Review of Systems Constitutional: Negative Eyes: Negative ENT: Negative Cardiovascular: Negative Respiratory: Negative Gastrointestinal: Negative Genitourinary: Negative Musculoskeletal: Negative Skin: Other Neurological/Mental Status: Negative Psychological: Normal All Other Systems Reviewed And Are Negative: Yes Physical Exam - Summary Physical Exam Summary: Vital Signs Reviewed: Yes Gen: NAD Eye Exam: Normal Eyes: Positive: Conjunctiva Clear ENT: Normal ENT inspection Neck: Supple Respiratory: Lungs clear, Normal breath sounds. Negative: Crackles, Rhonchi, Stridor, Wheezing Cardiovascular Exam: Normal, RRR, S1, S2 Abdomen: NT/ND Musculoskeletal Exam: Normal Neurological Exam: Normal Psychological Exam: Normal Skin Exam: 4-7mm erythematous and tender skin boils over the right knee ,right lateral upper thigh and swelling in right inguinal nodes Triage Information Reviewed: Yes Vital Signs On Initial Exam: Initial Vitals Temp Pulse Resp BP Pulse Ox 36.8 C 88 16 138/79 96 09/29/19 11:29 09/29/19 11:29 09/29/19 11:29 09/29/19 11:29 09/29/19 11:29 Vital Signs Reviewed: Yes Appearance: Positive: No Pain Distress Diagnostics - Vital Signs Vital Signs Temp Pulse Resp BP Pulse Ox 09/29/19 11:29 36.8 C 88 16 138/79 96 - Laboratory Lab Statement: Any lab studies that have been ordered have been reviewed, and results considered in the medical decision making process. Course/Dx - Course Assessment/Plan: suspect MRSA skin infection- will tx IV rocephin 1g and PO Bactrim DS x1 administered in UC - Differential Diagnoses - Skin Complaint Differential Diagnoses: Abscess - Diagnoses Provider Diagnoses: Boils of multiple sites - Critical Care Time Critical Care Statement: Critical care time is provided exclusive of any time spent performing procedures. Discharge ED - Sign-Out/Discharge Documenting (check all that apply): Patient Departure All imaging exams completed and their final reports reviewed: No Studies - Discharge Plan Condition: Stable Disposition: HOME Prescriptions: Sulfamethox/Trimethoprim DS* [Bactrim DS 800/160 TAB*] 1 tab PO BID 10 Days #20 tab Patient Education Materials: Furunculosis and Carbunculosis (ED) Referrals: Elayne Hanks MD [Primary Care Provider] - - Billing Disposition and Condition Condition: STABLE Disposition: Home
== END 2019-09-29 12:57 | disposition home or self-care (01) ==
LOC: UCEAST 11:16
DX: L02.425 Furuncle of right lower limb (principal); Z86.14 Personal history of Methicillin resistant Staphylococcus aureus infection; I10 Essential (primary) hypertension; F90.9 Attention-deficit hyperactivity disorder, unspecified type; Z79.899 Other long term (current) drug therapy; F17.210 Nicotine dependence, cigarettes, uncomplicated
CPT/HCPCS: 99212; A9270-GY; G0463; J0696

== ENCOUNTER 2020-11-14 12:21 | Inpatient (IN) ==
[2020-11-14 13:24] LABS: ABS Lymphocytes 1.8 10^3/ul (1.0-4.8); ABS Monocytes 0.6 10^3/ul (0-0.8); ABS Neutrophils 6.8 10^3/ul (1.5-7.7); Eosinophil % 0.1 %; Hematocrit 47 % (42-52); Hemoglobin 16.7 g/dL (14.0-18.0); Lymphocyte % 19.1 %; Mean Corpuscular HGB Conc 35 g/dL (31-36); Mean Corpuscular Hemoglobin 31 pg (27-31); Mean Corpuscular Volume 88 fL (80-94); Mean Platelet Volume 6.9 fL (7.4-10.4); Nucleated Red Blood Cells % 0.1; Platelet Count 351 10^3/uL (150-450); Red Blood Count 5.37 10^6 /uL (4.18-5.48); Red Cell Distribution Width 13 % (10-15); White Blood Count 9.2 10^3/uL (3.5-10.8)
[2020-11-14 13:40] LABS: ALT 19 U/L (7-52); AST 24 U/L (13-39); Albumin/Globulin Ratio 1.6 (1-3); Alkaline Phosphatase 73 U/L (35-149); Anion Gap 10 mmol/L (2-11); Blood Urea Nitrogen 11 mg/dL (6-24); CO2 Carbon Dioxide 21 mmol/L (22-32); Calcium 9.7 mg/dL (8.6-10.3); Chloride 105 mmol/L (101-111); EGFR African American 105.4 (>60); EGFR Non-African American 87.1 (>60); Globulin 3.2 g/dL (2-4); Glucose 107 mg/dL (70-100); Potassium 3.7 mmol/L (3.5-5.0); Sodium 136 mmol/L (135-145); Total Protein 8.2 g/dL (6.4-8.9)
[2020-11-14 13:41] LABS: Urine Benzodiazepine Screen None Detected (None Detect); Urine Cannabinoids Screen Presumptive Positive (None Detect); Urine Opiates Screen None Detected (None Detect)
[2020-11-14 13:57] LABS: Acetaminophen < 15 mcg/mL; Alcohol, S < 10 mg/dL (<10); Salicylate < 2.50 mg/dL (<30)
[2020-11-14 14:13] LABS: TSH Ultra Thyroid Stim Horm 0.63 mcIU/mL (0.34-5.60)
[2020-11-14 14:34] LABS: Urine Bacteria Absent (Absent); Urine Red Blood Cell Trace(0-2/hpf) (Absent); Urine White Blood Cell Trace(0-5/hpf) (Absent)
[2020-11-14 14:35] LABS: Urine Appearance Turbid; Urine Bilirubin Negative (Negative); Urine Blood Negative (Negative); Urine Color Amber; Urine Glucose Negative (Negative); Urine Ketones Negative (Negative); Urine Nitrite Negative (Negative); Urine Protein 2+(100 mg/dL) (Negative); Urine Specific Gravity 1.029 (1.002-1.030); Urine Urobilinogen Negative (Negative)
[2020-11-14] MEDS ORDERED: chlorproMAZINE TAB* 50 MG PO PRN (17:45)
[2020-11-14] MEDS ORDERED: Nicotine GUM 2MG FRUIT FLAVOR PO PRN (18:00)
[2020-11-14] MEDS: Al Hydrox/Mg Hydrox/Simet LIQ 30 ML UDC PO PRN (23:57)
[2020-11-15] MEDS: Nicotine PATCH 14 MG/24 HR PATCH TRANSDERM SCH (12:03)
[2020-11-16] MEDS: Nicotine PATCH 14 MG/24 HR PATCH TRANSDERM SCH (10:09)
[2020-11-17] MEDS: Nicotine PATCH 14 MG/24 HR PATCH TRANSDERM SCH (08:31)
[2020-11-18] MEDS: Nicotine PATCH 14 MG/24 HR PATCH TRANSDERM SCH (09:01)
[2020-11-18] MEDS: Al Hydrox/Mg Hydrox/Simet LIQ 30 ML UDC PO PRN (20:39)
[2020-11-19] MEDS: Nicotine PATCH 14 MG/24 HR PATCH TRANSDERM SCH (08:07)
[2020-11-19 08:27] LABS: HDL Cholesterol 27.8 mg/dL
[2020-11-19] MEDS: Al Hydrox/Mg Hydrox/Simet LIQ 30 ML UDC PO PRN (20:49)
[2020-11-20] MEDS: Al Hydrox/Mg Hydrox/Simet LIQ 30 ML UDC PO PRN ×2 (06:47→22:29)
[2020-11-20] MEDS: Nicotine PATCH 14 MG/24 HR PATCH TRANSDERM SCH (08:34)
[2020-11-21] MEDS: Nicotine PATCH 14 MG/24 HR PATCH TRANSDERM SCH (09:17)
[2020-11-21] MEDS: Al Hydrox/Mg Hydrox/Simet LIQ 30 ML UDC PO PRN (18:32)
[2020-11-22] MEDS: Al Hydrox/Mg Hydrox/Simet LIQ 30 ML UDC PO PRN ×2 (02:48→15:15)
[2020-11-22] MEDS: Nicotine PATCH 14 MG/24 HR PATCH TRANSDERM SCH (09:01)
[2020-11-23] MEDS: Nicotine PATCH 14 MG/24 HR PATCH TRANSDERM SCH (08:14)
[2020-11-24 08:13] VITALS: BP 131/76
[2020-11-24] MEDS: Nicotine PATCH 14 MG/24 HR PATCH TRANSDERM SCH (08:57)
== END 2020-11-24 11:25 | disposition home or self-care (01) | DRG 885 ==
LOC: ED 12:21 → BSU 14:30
PROVIDERS: ADMIT Psychiatry & Neurology Addiction Psychiatry; ATTEND Psychiatry & Neurology Addiction Psychiatry

== ENCOUNTER 2021-03-03 13:01 | Observation (INO) ==
[2021-03-03 13:54] LABS: ABS Eosinophils 0.1 10^3/ul (0-0.6); ABS Lymphocytes 2.4 10^3/ul (1.0-4.8); ABS Monocytes 0.5 10^3/ul (0-0.8); ABS Neutrophils 3.2 10^3/ul (1.5-7.7); Eosinophil % 1.4 %; Hematocrit 43 % (42-52); Hemoglobin 15.3 g/dL (14.0-18.0); Lymphocyte % 38.1 %; Mean Corpuscular HGB Conc 35 g/dL (31-36); Mean Corpuscular Hemoglobin 31 pg (27-31); Mean Corpuscular Volume 88 fL (80-94); Mean Platelet Volume 6.8 fL (7.4-10.4); Nucleated Red Blood Cells % 0.2; Platelet Count 283 10^3/uL (150-450); Red Blood Count 4.93 10^6 /uL (4.18-5.48); Red Cell Distribution Width 13 % (10-15); White Blood Count 6.3 10^3/uL (3.5-10.8)
[2021-03-03 14:03] LABS: INR 1.04 (0.86-1.15)
[2021-03-03 14:07] LABS: Albumin 4.6 g/dL (3.2-5.2); Albumin/Globulin Ratio 1.7 (1-3); Calcium 9.8 mg/dL (8.6-10.3); EGFR African American 126.1 (>60); EGFR Non-African American 104.3 (>60); Globulin 2.7 g/dL (2-4); Total Bilirubin 0.4 mg/dL (0.2-1.0); Total Protein 7.3 g/dL (6.4-8.9)
[2021-03-03 14:25] LABS: Potassium 4.1 mmol/L (3.5-5.0)
[2021-03-03] MEDS ORDERED: Ondansetron 4 mg VIAL 2 MG/ML 2 ml VIAL IV PRN (16:12)
[2021-03-03 17:05] LABS: Rapid COVID-19 Molecular Undetected (Undetected)
[2021-03-04 04:49] LABS: ABS Eosinophils 0.1 10^3/ul (0-0.6); ABS Lymphocytes 2.6 10^3/ul (1.0-4.8); ABS Monocytes 0.7 10^3/ul (0-0.8); ABS Neutrophils 3.8 10^3/ul (1.5-7.7); Eosinophil % 1.5 %; Hematocrit 44 % (42-52); Hemoglobin 15.7 g/dL (14.0-18.0); Lymphocyte % 36.6 %; Mean Corpuscular HGB Conc 36 g/dL (31-36); Mean Corpuscular Hemoglobin 31 pg (27-31); Mean Corpuscular Volume 88 fL (80-94); Mean Platelet Volume 6.8 fL (7.4-10.4); Nucleated Red Blood Cells % 0.1; Platelet Count 275 10^3/uL (150-450); Red Blood Count 5.01 10^6 /uL (4.18-5.48); Red Cell Distribution Width 13 % (10-15); White Blood Count 7.2 10^3/uL (3.5-10.8)
[2021-03-04 05:13] LABS: Calcium 9.7 mg/dL (8.6-10.3); EGFR African American 127.9 (>60); EGFR Non-African American 105.7 (>60); HDL Cholesterol 23.5 mg/dL
[2021-03-04] MEDS ORDERED: Perflutren Lipid Microsphere 3 ML VIAL ONE (07:52)
[2021-03-04] MEDS ORDERED: FLUOXETINE 10 MG PO SCH (09:00)
[2021-03-04 13:09] VITALS: BP 135/79
== END 2021-03-04 15:25 | disposition home or self-care (01) ==
LOC: MEDTELE 13:01 → ED 13:01 → SUATTDRO 20:55 → MEDTELE 23:00
PROVIDERS: ADMIT Student in an Organized Health Care Education/Training Program; ATTEND Internal Medicine